=== PATIENT | female | born 1940 | race Caucasian/White ===

== ENCOUNTER 2019-11-13 08:11 | Outpatient (CLI) | payer MEDICARE, SELFPAY ==
--- NOTE | ~2019-11-13 | CT_ITS ---
EXAMINATION: CT abdomen pelvis wo/w con DATE: 11/13/2019 09:02 INDICATION: Urinary bladder cancer restaging TECHNIQUE: Computed tomography (CT) of the abdomen and pelvis was performed without and subsequently with 130 cc Omnipaque 350 intravenous contrast. Automated exposure control and iterative reconstructi on technique were employed. Exam dose: 1804.85 mGy-cm total exam DLP. COMPARISON: 09/10/2017 CT abdomen pelvis FINDINGS: There is mild discoid atelectasis or scarring in the lower lung zones. Normal heart size. No pericardial or pleural effusion. Status post cholecystectomy. Occasional small cysts of each kidney is suggested. There is a pinpoint nonobstructing calculus the right kidney. No left renal calculus. No ureteral christiano culus or hydronephrosis of either kidney. There is a small amount of free air within the urinary bladder. Mild diffuse urinary bladder wall thi ckening. No intraluminal bladder mass lesion is evident. Retroverted uterus. The adnexal areas are unremarkable. Normal appendix. There are numerous diverticula of the left colon, especially the sigmoid and distal descending colon; no CT evidence of diverticulitis. No bowel obstruction or intraperitoneal free air. There is prominent calcification of the abdominal aorta and iliac arteries. No abdominal aortic aneur ysm. No intraperitoneal or retroperitoneal or pelvic mass lesion or adenopathy or ascites. Severe degenerative disc disease throughout the lumbar and lumbosacral spine and prominent degenerati ve changes in the included lower thoracic spine. There is grade 1 anterolisthesis at L4-5 associated with prominent degenerative change at the lumbar and lumbosacral apophyseal joints. Right posterior generator device with electrodes extending into the thoracic spinal canal. IMPRESSION: No urinary bladder malignancy recurrence or metastatic disease is apparent Small amount of air in the urinary bladder, which may be due to recent instrumentation if applicable, otherwise consider urinary bladder infection. There is mild diffuse thickening of the urinary bladde r wall., Clinical correlation is recommended for possible cystitis. Pinpoint nonobstructing right renal calculus Occasional small renal cysts Diverticulosis of the left colon Reviewed, dictated and finalized at Location A. Reviewed, dictated and finalized at location A. IMPRESSION: No urinary bladder malignancy recurrence or metastatic disease is apparent Small amount of air in the urinary bladder, which may be due to recent instrume ntation if applicable, otherwise consider urinary bladder infection. There is m ild diffuse thickening of the urinary bladder wall., Clinical correlation is re commended for possible cystitis. Pinpoint nonobstructing right renal calculus Occasional small renal cysts Diverticulosis of the left colon
[2019-11-13 08:44] LABS: Estimated Glomerular Filt Rate 48
== END 2019-11-13 08:12 | disposition home or self-care (01) ==
PROVIDERS: PCP Family Medicine; Visit Provider Urology
DX: C67.4 Malignant neoplasm of posterior wall of bladder (principal); N32.9 Bladder disorder, unspecified; N28.1 Cyst of kidney, acquired; K57.90 Diverticulosis of intestine, part unspecified, without perforation or abscess without bleeding
CPT/HCPCS: 36415; 74178; Q9967

== ENCOUNTER 2020-08-19 09:14 | Emergency (ER) | payer MEDICARE, SELFPAY ==
--- NOTE | ~2020-08-19 | CT_ITS ---
EXAMINATION: CT abdomen pelvis w con DATE: 08/19/2020 10:37 INDICATION: Epigastric pain. Covid Positive. TECHNIQUE: Computed tomography (CT) of the abdomen and pelvis was performed with 100 cc Omnipaque 350 intravenous contrast. The dose-length product was 725.14 mGy-cm. Automated exposure control and iter ative reconstruction technique were employed. COMPARISON: CT dated 11/13/2019 FINDINGS: Patchy groundglass opacities of the right middle and left lower lobe, suspicious for pneumo anna. Heart size normal. There is atherosclerosis. There is right adrenal nodule measuring 3.3 x 2.1 cm. There is a left adrenal mass measuring 2.2 x 1. 6 cm. Status post cholecystectomy. The spleen, pancreas, and kidneys are unremarkable. There is atherosclerosis colonic diverticulosis without evidence for diverticulitis. Nonobstructive b owel gas pattern. Severe lumbar spondylosis. No lymphadenopathy IMPRESSION: 1. Patchy groundglass opacities right middle and left lower lobe, suspicious for pneumonia. 2: Bilateral adrenal masses. Differential diagnosis includes atypical adenomatous, metastatic diseas e and lymphoma. Consider correlation with MRI. Reviewed, dictated and finalized at location A. [employer]GR[employer] IMPRESSION: 1. Patchy groundglass opacities right middle and left lower lobe, suspicious fo r pneumonia. 2: Bilateral adrenal masses. Differential diagnosis includes atypical adenomat ous, metastatic disease and lymphoma. Consider correlation with MRI.
--- NOTE | ~2020-08-19 | XR_ITS ---
EXAMINATION: XR chest 1V portable DATE: 08/19/2020 11:04 INDICATION: Weakness. COVID-19 pneumonia. TECHNIQUE: A single frontal view of the chest was obtained. COMPARISON: Chest 2 views 09/07/2017, CT abdomen and pelvis 08/19/2020 FINDINGS: There are patchy airspace opacities in all right lung zones and in left mid and lower lung zones. No pleural effusion or pneumothorax. The heart size is normal. Epidural electrodes overlie tho racic spine. IMPRESSION: 1. Multifocal lung disease, consistent with COVID-19 pneumonia. Reviewed, dictated and finalized at location A. N [employer]OURCES TEMP
[2020-08-19 09:21] VITALS: BP 141/83; PULSE 97; RESP 20; TEMP 36.7; O2SAT 96
--- NOTE | 2020-08-19 09:27 | ECG_ITS ---
Measurements Intervals [place] Rate: 93 P: 77 MI: 144 QRS: -22 QRSD: 98 T: 14 QT: 338 QTc: 422 Interpretive Statements SINUS RHYTHM VENTRICULAR PREMATURE COMPLEX DELAYED PRECORDIAL R/S TRANSITION BORDERLINE T WAVE ABNORMALITY- INFERIOR LEADS BASELINE ARTIFACT- I, II, III, AVR, AVL, AVF BORDERLINE ECG Electronically Signed On 08-19-2020 11:20:38 WEAVING SUPERVISOR by Daniel Lazo D.O.
[2020-08-19 09:28] VITALS: PULSE 92
--- NOTE | 2020-08-19 09:43 | ED.WEAKNESS ---
HPI - Weakness General Chief complaint: Weakness Stated complaint: i feel horrible , covid 19+ Time Seen by Provider: 08/19/20 09:23 History of Present Illness HPI Narrative: 80 yo female w/ h/o htn presents to the ED for feeling bad. She reports that her symptoms started yesterday, although she also says that she had a positive COVID-19 test 3-4 days ago due to these symptoms. Her main complaint is nausea and epigastric pain. She also c/o generalized weakness. Other than that she just says she feels awful, but is not able to provide details. Related Data Allergies Allergy/AdvReac Type Severity Reaction Status Date / Time No Known Allergies Allergy Unverified 04/29/20 09:28 Review of Systems Review of Systems: All systems reviewed & are unremarkable except as noted in HPI and below Constitutional: Constitutional: Denies chills, Denies fever(s) and Reports weakness Eyes: Eyes: Reports no additional eye complaints ENT: Denies nasal congestion and Denies sore throat Cardiovascular: Cardiovascular: Denies chest pain Respiratory: Respiratory: Denies cough and Denies dyspnea Gastrointestinal: Gastrointestinal: Reports abdominal pain, Denies constipation, Denies diarrhea, Reports nausea and Denies vomiting Genitourinary: Genitourinary: Denies hematuria and Denies dysuria Musculoskeletal: Musculoskeletal: Denies back pain and Reports myalgias Neurologic: Reports confusion, Denies dizziness and Reports weakness Endocrine: Endocrine: Reports fatigue [facility] Past Medical History Medical History (Updated 08/19/20 @ 12:18 by Rayray Monroy MD) Chronic GERD Essential hypertension Essential tremor Memory deficit Primary osteoarthritis, unspecified site Family History Family History (Updated 10/28/18 @ 07:25 by DOCTOR UNKNOWN) Mother Diabetes mellitus Family history of cardiovascular disease Father Family history of aortic aneurysm Social History Social History (Updated 04/29/20 @ 09:27 by Yara Eddy) Smoking status: Former smoker Alcohol intake: never Substance use: never Gender identity (if verbalized by the patient): Female Exam Const: General: no acute distress and alert Nutritional Appearance: obese Orientation/consciousness: patient oriented x3 HENMT: Head: normal to inspection Neck: Neck: normal visual inspection and no lymphadenopathy Resp: Effort & Inspection: normal respiratory effort Auscultation: clear to auscultation bilaterally, no rales, no rhonchi and no wheezes Cardio: Jugular venous distension: no JVD Rate: regular rate Rhythm: regular rhythm Heart sounds: no murmurs GI: Inspection: non-distended GI Palp: Yes Soft to palpation, Yes Tenderness to palpation present (GI) (epigastric), Yes Guarding due to palpation present (GI) and No Rebound tenderness present Skin: General skin exam: normal color Neuro: General: patient oriented x3, moves all extremities, no focal motor deficits and CN's II-XI intact bilaterally Speech: normal speech Other: generalized fine tremor Extrem: General: no edema Psych: Appearance: well kempt Affect: Anxious affect present Course Vital Signs Vital signs: Vital Signs Temperature 36.7 C 08/19/20 09:21 Pulse Rate 97 08/19/20 09:21 Respiratory Rate 20 08/19/20 09:21 Blood Pressure 141/83 H 08/19/20 09:21 Pulse Oximetry 96 08/19/20 09:21 Temperature 36.7 C 08/19/20 09:21 Pulse Rate 90 08/19/20 11:51 Respiratory Rate 14 08/19/20 11:51 Blood Pressure 135/84 08/19/20 11:51 Pulse Oximetry 97 08/19/20 11:51 MDM - Weakness MDM Narrative Medical decision making narrative: Vital signs normal. No SOB. Labs suggest mild dehydration and UTI. She does have an infiltrate on CT and x-ray. This is not unexpected given positive COVID test. No indication for admission at this time. Medical Records Attestation: I reviewed the patient's medical records. Lab Data Attestation: I reviewed the patie
[2020-08-19] MEDS: ONDANSETRON INJ 4 MG/2 ML VIAL IV PUSH (09:56)
[2020-08-19] MEDS: SODIUM CHLORIDE 0.9% IV 500 ML 999 ML IV CONT (09:56)
[2020-08-19 10:03] LABS: Basophils Percent Auto 0.2 % (0.2-1.2); Hematocrit 47.1 % (37.0-47.0); Hemoglobin 15.8 g/dL (12.0-15.0); Immature Granulocyte Absolute 0.03 K/mm3 (0.00-0.031); Immature Granulocyte Percent A 0.5 % (0-0.5); Immature Platelet Fraction Pct 14.7 % (0.9-11.2); Lymphocytes Absolute Auto 0.69 K/mm3 (0.9-3.2); Lymphocytes Percent Auto 12.3 % (18.3-44.2); Mean Corpuscular HGB Conc 33.5 g/dl (32-36); Mean Corpuscular Hemoglobin 29.9 pg (26-34); Mean Corpuscular Volume 89.2 fl (80-100); Mean Platelet Volume 13.8 fl (7.4-10.4); Monocytes Absolute Auto 0.6 K/mm3 (0.1-0.6); Monocytes Percent Auto 9.8 % (2.6-8.5); Neutrophils Absolute Auto 4.3 K/mm3 (1.3-6.7); Neutrophils Percent Auto 77.2 % (45.5-73.1); Platelet Count Result 142 k/mm3 (150-375); Red Blood Count 5.28 M/mm3 (4.2-5.4); Red Cell Distribution Width 13.3 % (11.5-14.5); White Blood Count 5.6 K/mm3 (4.5-10.0)
[2020-08-19 10:17] LABS: Alanine Aminotransferase 36 U/L (4-35); Albumin Level 3.9 g/dL (3.5-5.1); Alkaline Phosphatase 96 U/L (38-126); Anion Gap 8 mmol/L (8-16); Aspartate Amino Transferase 50 U/L (14-36); Bilirubin,Total 0.5 mg/dL (0.2-1.3); Blood Urea Nitrogen 21 mg/dL (7-17); Calcium 9.1 mg/dL (8.4-10.2); Carbon Dioxide 27 mmol/L (22-30); Chloride 105 mmol/L (98-107); Estimated CRCL calculation 39 ml/min; Estimated Glomerular Filt Rate 60; Glucose 130 mg/dL (65-105); Potassium 3.6 mmol/L (3.4-5.0); Sodium 140 mmol/L (137-145)
[2020-08-19 11:51] VITALS: BP 135/84; PULSE 90; RESP 14; O2SAT 97
[2020-08-19 12:09] LABS: Add Urine Microscopic? YES; Appearance Urine Clear (Clear); Bilirubin Urine Negative (Negative); Blood Urine 1+ (Negative); Color Urine Straw (Yellow); Glucose Urine UA Negative (Negative); Ketones Urine Trace mg/dL (Negative); Leukocyte Esterase Ur Negative LEU/UL (Negative); Nitrate Urine Positive (Negative); Protein Urine 2+ mg/dL (Negative); RBC Urine 0-2 /hpf (0-2); Squamous Epithelial Cell Urine Rare /hpf (Few); Transitional Epi Cells Urine Rare /hpf (None Seen); Urobilinogen Urine Negative mg/dL (<2.0); WBC Urine 0-3 /hpf
[2020-08-19 12:10] LABS: Specific Grav Ur 1.042 (1.001-1.035)
[2020-08-19] MEDS: NITROFURANTOIN MONOHYD MACROCR 100 MG CAP PO (12:40)
== END 2020-08-19 12:41 | disposition home or self-care (01) ==
PROVIDERS: Emergency Provider Emergency Medicine; PCP Family Medicine
DX: U07.1 COVID-19 (principal); N30.00 Acute cystitis without hematuria; K21.9 Gastro-esophageal reflux disease without esophagitis; I10 Essential (primary) hypertension; M19.90 Unspecified osteoarthritis, unspecified site; Z87.891 Personal history of nicotine dependence; R91.8 Other nonspecific abnormal finding of lung field; I49.3 Ventricular premature depolarization; R94.31 Abnormal electrocardiogram [ECG] [EKG]
CPT/HCPCS: 36415; 71045; 74177; 80053; 81001; 85025; 85055; 93005; 96361; 96374; 99284; A9270; J2405; J7040; Q9967

== ENCOUNTER 2021-12-27 14:53 | Outpatient (CLI) | payer MEDICARE, SELFPAY ==
--- NOTE | ~2021-12-27 | DEXA_ITS ---
Bone Density Report Name: SANTANA GALAN Age: 81 Sex: Female Ethnicity: White Date of : 1940 Indication: osteopenia; monitoring treatment; height loss; postmenopausal Referring Provider: CHRISTINE STEWART Study: Bone densitometry was performed. Exam Date: December 27, 2021 Accession number: [id number] Bone Density: Region BMD T-score Z-score Classification AP Spine(L1, L2) 0.996 0.2 2.8 Normal Femoral Neck (Left) 0.609 -2.2 0.3 Osteopenia Total Hip (Left) 0.712 -1.9 0.4 Osteopenia Femoral Neck (Right) 0.606 -2.2 0.3 Osteopenia Total Hip (Right) 0.655 -2.4 -0.1 Osteopenia Total Hip Mean 0.684 -2.2 0.2 Osteopenia World Health Organization criteria for BMD impression classify patients as: Normal (T-score at or above -1.0), Osteopenia (T-score between -1.0 and -2.5), or Osteoporosis (T-score at or below -2.5). 10-year Fracture Risk: FRAX not reported because: Treated for osteoporosis Previous Exams: Region Exam Age BMD T-score BMD Change BMD Change Date g/cm2 vs Baseline vs Previous AP Spine (L1-L2) 12/27/2021 81 0.996 0.2 -0.005 (-0.5%) -0.005 (-0.5%) 11/04/2018 78 1.001 0.2 Total Hip(Left) 12/27/2021 81 0.712 -1.9 -0.101 (-12.4% -0.101 (-12.4% 11/04/2018 78 0.812 -1.1 Total Hip(Right) 12/27/2021 81 0.655 -2.4 -0.092 (-12.3% -0.092 (-12.3% 11/04/2018 78 0.747 -1.6 *Denotes significance at 95% confidence level, LSC for AP Spine = 0.022 g/cm2, LSC for Total Hip = 0.027 g/cm2 Clinical Information Provided by Patient: Is being treated for osteoporosis Has used the following medications: Vitamin D, Calcium Patient maximum height was 62 Menopause Age: 55 No regular weight bearing exercise Does not regularly consume dairy products Drinks caffeinated beverages Onset of menses at age 10 Number of children 3 Impression: The patient has low bone mass, based on the Right Total Hip T-score. The BMD for the Total Hip(Left) decreased, changing by -12.4% since the last DXA exam. The BMD for the Total Hip(Right) decreased, changing by -12.3% since the last DXA exam. Discussion: SIGNIFICANT BONE LOSS OBSERVED. Adherence to therapy (including calcium and vitamin D intake) should be assessed. If compliance is not a factor, review management and exclusion of secondary causes of bone loss. It is important to ask patients whether they are taking their medications and to encourage continued and appropriate compliance with their ost
== END 2021-12-27 14:54 | disposition home or self-care (01) ==
PROVIDERS: PCP Family Medicine; Visit Provider Physician Assistant
DX: M85.852 Other specified disorders of bone density and structure, left thigh (principal); M85.851 Other specified disorders of bone density and structure, right thigh
CPT/HCPCS: 77080

== ENCOUNTER 2023-11-29 15:23 | Outpatient (CLI) | payer MEDICARE, SELFPAY ==
--- NOTE | ~2023-11-29 | CT_ITS ---
EXAMINATION: CT brain wo con DATE: 11/29/2023 15:46 INDICATION: Amnesia. TECHNIQUE: Computed tomography (CT) of the head was performed without intravenous contrast. The dose- length product was 605.33 mGy-cm. Automated exposure control and iterative reconstruction technique w ere employed. COMPARISON: None FINDINGS: Generalized atrophy. There are scattered moderate periventricular and subcortical white mat ter changes, most likely related to small vessel ischemic disease (microangiopathy). No ventriculomeg rosa isela or midline shift. Basilar cisterns are patent. Paranasal sinuses and mastoids are pneumatized. No depressed skull fractures. IMPRESSION: 1. No acute intracranial abnormality. 2: Chronic age-related findings. Reviewed, dictated and finalized at location B.
== END 2023-11-29 15:24 | disposition home or self-care (01) ==
LOC: ANHIMG 15:25
PROVIDERS: PCP Family Medicine; Visit Provider Physician Assistant
DX: R41.3 Other amnesia (principal)
CPT/HCPCS: 70450

== ENCOUNTER 2023-12-04 11:10 | Outpatient (CLI) | payer MEDICARE, SELFPAY ==
--- NOTE | ~2023-12-04 | XR_ITS ---
XR pelvis min 3V DATE: 12/04/2023 11:42 INDICATION: Pain TECHNIQUE: AP and bilateral oblique views of the pelvis COMPARISON: None FINDINGS: There is rotatory dextro scoliosis and multilevel severe degenerative disc disease of the l umbar spine. There is a battery pack overlying the right mid to lower abdomen, with 2 electrodes extending cephala d. There is a prominent amount of fecal material within the colon. No bowel obstruction. There is abdominal aortic and iliac and femoral arterial calcification. Osteopenia. Normal alignment at the pubic symphysis and sacroiliac joints. No pelvic fracture or bone destruction is detected. Mild to moderate bilateral hip osteoarthritis. No fracture, dislocation, avascular necrosis or bone d estruction of either hip is evident. IMPRESSION: Rotatory dextroscoliosis and multilevel severe degenerative disc disease of the lumbar sp ine Osteopenia Mild to moderate bilateral hip osteoarthritis Reviewed, dictated and finalized at location B. IMPRESSION: Rotatory dextroscoliosis and multilevel severe degenerative disc di sease of the lumbar spine Osteopenia Mild to moderate bilateral hip osteoarthritis
== END 2023-12-04 11:11 | disposition home or self-care (01) ==
LOC: ANHIMG 11:11
PROVIDERS: PCP Family Medicine; Visit Provider Physical Medicine & Rehabilitation Pain Medicine
DX: M46.1 Sacroiliitis, not elsewhere classified (principal); M16.0 Bilateral primary osteoarthritis of hip; M85.88 Other specified disorders of bone density and structure, other site; M51.36 Other intervertebral disc degeneration, lumbar region
CPT/HCPCS: 72190

== ENCOUNTER 2024-10-15 12:14 | Emergency (ER) | payer MEDICARE, SELFPAY ==
--- NOTE | ~2024-10-15 | CT_ITS ---
CT head without contrast Indication: Status post fall COMPARISON: 11/29/2023 Technique: Serial scans were obtained through the brain without the administration of contrast. Dose reduction technique was used on this scan by utilizing automated exposure control and iterative recon struction technique. The dose-length product (DLP) was 605.33 mGy-cm. Findings: There is no evidence of intracranial hemorrhage, mass lesion, or acute infarct. The ventri cles and subarachnoid spaces are dilated, consistent with moderate atrophy. Low attenuation regions are seen within the periventricular white matter bilaterally, likely representing changes from chroni c microvascular ischemic disease. There is no evidence of edema, mass effect or midline shift. The visualized paranasal sinuses and mastoid air cells are clear. Impression: No intracranial hemorrhage, mass, or acute infarct. Atrophy and chronic white matter changes, as above. Reviewed, dictated and finalized at [facility]. NE MARKETER Impression: No intracranial hemorrhage, mass, or acute infarct. Atrophy and chronic white matter changes, as above.
--- NOTE | ~2024-10-15 | CT_ITS ---
Noncontrast CT scan of the cervical spine Technique: Multiple contiguous axial [address] images of the cervical spine were obtained and rec onstructed in 2D sagittal and coronal planes on the acquisition scanner. Dose reduction technique was used on this scan by utilizing automated exposure control, adjustment of the mA and/or kV according to patient size. The dose-length product (DLP) was 182.61 mGy-cm. Clinical History: Pain Findings: No fracture identified. There is straightening of the normal cervical lordosis. There is m inimal grade 1 anterolisthesis of C3 over C4. There is severe degenerative disc narrowing at C4-C5, C 5-C6, and C6-C7. There is extensive, advanced facet arthropathies of the cervical spine, right it intern al worse than left. There is right neural foraminal narrowing at C3-C4. There is bilateral neural for aminal narrowing at C4-C5. There is right neural foraminal narrowing in particular at C5-C6. There is bilateral neural foraminal narrowing at C6-C7. No prevertebral soft tissue swelling. Impression: No acute fracture. Minimal grade 1 anterolisthesis of C3 over C4. Degenerative spondylitic changes, as above. Reviewed, dictated and finalized at location M. NHOUSE TRANSPLANTER Impression: No acute fracture. Minimal grade 1 anterolisthesis of C3 over C4. Degenerative spondylitic changes, as above.
--- NOTE | ~2024-10-15 | XR_ITS ---
EXAMINATION: XR knee LT 3V DATE: 10/15/2024 13:06 INDICATION: Left knee pain. Fall. TECHNIQUE: 3 views of left knee were obtained. 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 No fracture. No periprosthetic lucency to suggest loosening or infection. There is a small knee hari int effusion. IMPRESSION: 1. Total left knee arthroplasty in near-anatomic alignment. 2. Small left knee joint effusion. Reviewed, dictated and finalized at location A. OPERATIONS OFFICER
--- NOTE | ~2024-10-15 | XR_ITS ---
EXAMINATION: XR pelvis 1-2V DATE: 10/15/2024 13:06 INDICATION: Fall. TECHNIQUE: An anteroposterior view of the pelvis was obtained. COMPARISON: Pelvis radiograph 12/04/2023 FINDINGS: There is lumbar dextroscoliosis and severe spondylosis. There is screw fixation of left sac roiliac joint. No acute fracture. There is moderate osteoarthritis of the hips. An electronic device overlies right abdomen. IMPRESSION: 1. Moderate osteoarthritis of the hips. Reviewed, dictated and finalized at location A. WORKER
--- NOTE | ~2024-10-15 | XR_ITS ---
EXAMINATION: XR chest 1V portable DATE: 10/15/2024 13:06 INDICATION: Fall. TECHNIQUE: A single frontal view of the chest was obtained. COMPARISON: Chest single view 08/19/2020 FINDINGS: There is no pneumonia, pleural effusion, or pneumothorax. The heart size is normal. Epidura l electrodes are noted. IMPRESSION: 1. No acute cardiopulmonary disease. Reviewed, dictated and finalized at location A. ENSATION SUPERVISOR
[2024-10-15 12:15] VITALS: BP 156/93; PULSE 76; RESP 18; TEMP 36.5; O2SAT 97
--- OUTSIDE RECORDS SUMMARY | 2024-10-15 12:26 | XMS_ITS | Clinical Summary ---
Author Organization [facility] Address [address] [place] [address] Care Team Providers Care Diesel Engine Pipe Fitter Name Role Phone Unavailable Primary Care Provider Unavailabl e Source Comments [facility],non-owned Affiliates and Associated Physician Practices is amultiple site organization consisting of ambulatory clinics and hospital sitesin [place], [place], [place] and [place]. This disclosure is being madepursuant to the Care Everywhere program and may not contain all information available regarding this patient. Last updated 18.[facility] [employer] Social History Tobacco Use Types Packs/Day Years Used Date Smoking Tobacco: Never Assessed Sex and Gender Information Value Date Recorded Sex Assigned at Not on file Gender Identity Not on file Sexual Orientation Not on file Last Filed Vital Signs Vital Sign Reading Time Taken Comments Blood Pressure 120/79 09/11/2017 8:55 AM SENIOR PRODUCT MARKETING MANAGER Pulse 77 09/11/2017 8:55 AM SENIOR PRODUCT MARKETING MANAGER Temperature - - Respiratory Rate - - Oxygen Saturation 97% 09/11/2017 8:55 AM SENIOR PRODUCT MARKETING MANAGER Inhaled Oxygen Concentration - - Weight 86.6 kg (191 lb) 09/11/2017 7:09 AM SENIOR PRODUCT MARKETING MANAGER Height 152.4 cm (5') 09/11/2017 7:09 AM SENIOR PRODUCT MARKETING MANAGER Body Mass Index 37.3 09/11/2017 7:09 AM SENIOR PRODUCT MARKETING MANAGER Plan of Treatment Health Maintenance Due Date Last Done Comments BONE DENSITY TESTING 1940 DTAP/TDAP/TD VACCINES (1 - Tdap) 1957 PNEUMOCOCCAL VACCINE 50+ (1 of 1 - PCV) 1988 ZOSTER VACCINE (1 of 2) 1988 Respiratory Syncytial Virus (RSV) Vaccine Pt: or over 60 yrs (1 - 1-dose 75+ series) 2013 COVID-19 VACCINE ( - 2023-2 5 season) 2024 INFLUENZA VACCINE (#1) 2024 DEPRESSION SCREENING 09/03/2024 HEPATITIS B VACCINE Aged Out No longe r eligible based on patient's age to complete this topic HIB VACCINE Aged Out No longer eligi ble based on patient's age to complete this topic HPV VACCINE Aged Out No longer eligi ble based on patient's age to complete this topic MENINGOCOCCAL (Group B) VACCINE Aged Out No longer eligible based on patient's age to complete this topic MENINGOCOCCAL VACCINE Aged Out No dominique enid eligible based on patient's age to complete this topic
--- OUTSIDE RECORDS SUMMARY | 2024-10-15 12:26 | XMS_ITS | Referral Summary ---
Author Organization [facility] Address [address] [place] [address] Care Team Providers Care Top Stop Attacher Name Role Phone Unavailable Primary Care Provider Unavailabl e Source Comments [facility],non-owned Affiliates and Associated Physician Practices is amultiple site organization consisting of ambulatory clinics and hospital sitesin [place], [place], [place] and [place]. This disclosure is being madepursuant to the Care Everywhere program and may not contain all information available regarding this patient. Last updated 18.[facility] [employer] Social History Tobacco Use Types Packs/Day Years Used Date Smoking Tobacco: Never Assessed Sex and Gender Information Value Date Recorded Sex Assigned at Not on file Gender Identity Not on file Sexual Orientation Not on file Last Filed Vital Signs Vital Sign Reading Time Taken Comments Blood Pressure 120/79 09/11/2017 8:55 AM SHEET ROCK NAILER Pulse 77 09/11/2017 8:55 AM SHEET ROCK NAILER Temperature - - Respiratory Rate - - Oxygen Saturation 97% 09/11/2017 8:55 AM SHEET ROCK NAILER Inhaled Oxygen Concentration - - Weight 86.6 kg (191 lb) 09/11/2017 7:09 AM SHEET ROCK NAILER Height 152.4 cm (5') 09/11/2017 7:09 AM SHEET ROCK NAILER Body Mass Index 37.3 09/11/2017 7:09 AM SHEET ROCK NAILER Plan of Treatment Not on file
--- OUTSIDE RECORDS SUMMARY | 2024-10-15 12:26 | XMS_ITS | Referral Summary ---
Author Organization [facility] Address [address] [place] [address] Care Team Providers Care Pelt Grader Name Role Phone Dereck Byrnes MD Primary Care Provider Allergies No known active allergies Medications losartan (COZAAR) 100 mg tablet Take 100 mg by mouth daily 12/08/2019 Active pregabalin (LYRICA) 200 mg capsule Take 200 mg by mouth 2 (two) times a day 01/29/2020 Active lansoprazole (PREVACID) 30 mg capsule Take by mouth daily 12/17/2019 Active hydroCHLOROthiaz sonam (MICROZIDE) 12.5 mg capsule Take 12.5 mg by mouth daily 12/18/2019 Active cholecalciferol (cholecalciferol ) 400 unit capsule Take by mouth daily Active celecoxib (CeleBREX) 200 mg capsule Take by mouth daily 02/13/2020 Active aspirin 81 mg enteric coated tablet Take 81 mg by mouth daily Active Active Problems Problem Noted Date Diagnosed Date Finger injury, initial encounter 03/01/2020 Degeneration of intervertebral disc of lumbar re gion 06/23/2014 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 06/23/2014 Lumbar radiculopathy 06/23/2014 Scoliosis 06/04/2014 Social History Tobacco Use Types Packs/Day Years Used Date Smoking Tobacco: Former Cigarettes Q uit: 2006 Alcohol Use Standard Drinks/Week Comments Yes 0 (1 standard drink = 0.6 oz pur e alcohol) social Personal Safety Answer Date Recorded Getting School Help Needed Not on file 11/16 Comments Unknown Sex and Gender Information Value Date Recorded Sex Assigned at Not on file Legal Sex Female 12:26 AM NITROGLYCERIN SEPARATOR OPERATOR Gender Identity Female 02/27/2020 3:04 PM CDT Sexual Orientation Straight 02/27/2020 3: 04 PM CDT Last Filed Vital Signs Vital Sign Reading Time Taken Comments Blood Pressure 183/95 03/11/2020 6:51 AM CDT Pulse 75 03/11/2020 6:51 AM CDT Temperature 35.9 C (96.6 F) 03/24/2020 9:22 AM CDT Respiratory Rate - - Oxygen Saturation 95% 03/11/2020 6:51 AM CDT Inhaled Oxygen Concentration - - Weight 86.7 kg (191 lb 3.2 oz) 03/11/2020 6:51 A M CDT Height 152.4 cm (5') 03/11/2020 6:51 AM CDT Body Mass Index 37.34 03/11/2020 6:51 AM CDT Plan of Treatment Not on file Insurance MEDICARE [facility] Care Teams Pelt Grader Relationship Specialty Start Date End Date Dereck Byrnes MD [address] [facility] [address] [place] [address] PCP - General 01/31/19
--- OUTSIDE RECORDS SUMMARY | 2024-10-15 12:26 | XMS_ITS | Patient Health Summary ---
Author Organization [facility] Address [address] [place] [address] Care Team Providers Care Crystalizer Operator Name Role Phone Unavailable Primary Care Provider Unavailabl e Note from [facility],non-owned Affiliates and Associated Physician Practices is amultiple site organization consisting of ambulatory clinics and hospital sitesin [place], [place], [place] and [place]. This disclosure is being madepursuant to the Care Everywhere program and may not contain all information available regarding this patient. Last updated 18.[facility] [employer] Social History Tobacco Use Types Packs/Day Years Used Date Smoking Tobacco: Never Assessed Sex and Gender Information Value Date Recorded Sex Assigned at Not on file Gender Identity Not on file Sexual Orientation Not on file Last Filed Vital Signs Vital Sign Reading Time Taken Comments Blood Pressure 120/79 09/11/2017 8:55 AM TELLER SUPERVISOR Pulse 77 09/11/2017 8:55 AM TELLER SUPERVISOR Temperature - - Respiratory Rate - - Oxygen Saturation 97% 09/11/2017 8:55 AM TELLER SUPERVISOR Inhaled Oxygen Concentration - - Weight 86.6 kg (191 lb) 09/11/2017 7:09 AM TELLER SUPERVISOR Height 152.4 cm (5') 09/11/2017 7:09 AM TELLER SUPERVISOR Body Mass Index 37.3 09/11/2017 7:09 AM TELLER SUPERVISOR Procedures * DERMATOPATHOLOGY(Performed 06/13/2017) * DERMATOPATHOLOGY(Performed 09/26/2016) * GROSS + MICRO EXAM(Performed 05/18/2008) Results * PATHOLOGY TISSUE FOR DERMATOLOGY (06/13/2017 12:00 AM CDT) Only the most recent of2 resultswithin the time period is included. 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 Check margins. GROSS DESCRIPTION: Received is one formalin filled container labeled with the patients name and designated left lat forehead. The specimen consists of a shave biopsy measuring [id number]. Jar 0. MICROSCOPIC DESCRIPTION: The epidermis shows full thickness disorderly maturation of keratinocytes, mitoses at different levels, and dyskeratotic cells. Adnexal extension of the lesion is seen. There is overlying parakeratosis. This lesion is present at the margin of the specimen. Electronically signed out by Dee Dee Mims M.D., PhD. 06/15/2017 2:00:28PM [facility] Comment: Performed at: Dermatopathology Laboratory [facility] Department of Dermatology [address] [place] [address] [place] [address] Phone number: [phone] FAX: [phone] 06/13/2017 06/14/2017 Chetan Michel MD LAB - PATHOLOGY/CYTO LOGY ORDERABLES [facility] [address] [place] [address]. [facility] Floor Lab [address] [phone] * GROSS + MICRO EXAM (05/18/2008 10:25 AM CDT) Result CASE NUMBER [id number] Comment: ORDERING PHYSICIAN JOY FINLEY SPECIMEN TYPE Rectal Biopsy-rectal area Date 05/18/2008 Physician Guillermo Finley Gross Description The specimen is received in a formalin-filled container labeled with the patient's name and rectal biopsy . It consists of multiple 1 mm. fragments of piña tissue, all submitted in a single cassette. LW/bk Microscopic Exam The rectal biopsy reveals multiple fragments of hyperplastic polyps. MM/na Diagnosis I. Rectum, polyps, biopsy -- Hyperplastic polyps MM/na Pediatric Physical Therapist na Pathologist Guillermo Paz M.D. [place]. 05/19/2008 1255 <1> CPT code 31246 MISCELLANEOUS SAMPLES / Unknown 05/18/2008 10:25 AM CDT 05/18/2008 2:09 PM CDT Historical Provider LAB - PATHOLOGY/C YTOLOGY ORDERABLES
--- OUTSIDE RECORDS SUMMARY | 2024-10-15 12:26 | XMS_ITS | Clinical Summary ---
Author Organization [facility] Address [address] [place] [address] Care Team Providers Care Spare Parts Clerk Name Role Phone Dereck Byrnes MD Primary [...] nosis 06/23/2014 Lumbar radiculopathy 06/23/2014 Scoliosis 06/04/2014 Surgical History Surgery Date Site/Laterality Comments JOINT REPLACEMENT Bilateral knees CHOLECYSTECTOMY EYE SURGERY SKIN CANCER EXCISION ear THUMB SURGERY 03/11/2020 Left left UCL repair Medical History Medical History Date Comments Cancer (CMS/HCC) (HCC) bladder Hypertension Family History Medical History Relation Name Comments Arthritis Father Diabetes Mother Heart disease Mother Heart disease Other 1 Family history of cardiac disorder - (Added by TW Conv) Arthritis Other 2 Family history of arthritis - (Added by TW Conv) Hypertension Other 3 Family history of hypertension - (Added by TW Conv) Diabetes Other 4 Family history of diabetes mellitus - (Added by TW Conv) Thyroid disease Other 5 Family histo ry of thyroid disease - (Added by TW Conv) Relation Name Status Comments Father Mother Other 1 Other 2 Other 3 Other 4 Other 5 Social History Tobacco Use Types Packs/Day Years [...] on file Legal Sex Female 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
--- NOTE | 2024-10-15 12:27 | ED_ITS ---
HPI - Fall General Chief Complaint: Fall Stated Complaint: FALL Time Seen by Provider: 10/15/24 12:26 Source: patient and family Mode of arrival: ambulatory Limitations: no limitations History of Present Illness HPI Narrative: 84-year-old female with a history of ex smoking,cognitive impairment, hypertension, osteoarthritis, tremor presents to the ED for -- accidental fall this morning at 9:45 a.m.. Legs were stuck and she fell on a carpeted floor and sustained a head injury. No loss of consciousness. No focal neuro deficits. -- superficial laceration over right lateral supraorbital ridge -- bruising of left knee with pain -- nausea without any vomiting. -- cough which is nonproductive MD complaint: fall Onset (ago): hour(s) ( 3 hours ago) Fall from: standing Fall witnessed: no Place fall occurred: home Loss of consciousness: none Prolonged down time: no Symptoms prior to fall: none Context: tripped/slipped Location of injury: head Associated symptoms (after fall): denies Related Data Allergies Allergy/AdvReac Type Severity Reaction Status Date / Time No Known Allergies Allergy Verified 10/15/24 12:20 Review of Systems 2 Review of Systems: vitals are stable. Patient is ambulatory. Constitutional: Constitutional: Reports as per HPI and Reports no additional constitutional complaints Eyes: Eyes: Reports as per HPI and Reports no additional eye complaints ENT: Reports system reviewed and no additional complaints, except as documented and Reports as per HPI Cardiovascular: Cardiovascular: Reports as per HPI and Reports no additional cardiovascular complaints Respiratory: Respiratory: Reports as per HPI and Reports no additional respiratory complaints Gastrointestinal: Gastrointestinal: Reports as per HPI and Reports no additional gastrointestinal complaints Genitourinary: Genitourinary: Reports no additional female genitourinary complaints and Reports as per HPI Musculoskeletal: Musculoskeletal: Reports no additional musculoskeletal complaints and Reports as per HPI Comments: left knee pain. Integumentary/Breasts: Skin/Breast: Reports system reviewed and no additional complaints, except as docu and Reports as per HPI Comments: right lateral supraorbital superficial laceration measuring 1 cm left knee erythema Neurologic: Reports system reviewed and no additional complaints, except as documented and Reports as per HPI Comments: No focal neuro deficits Psychiatric: Psychiatric: Reports no additional psychiatric complaints and Reports as per HPI Endocrine: Endocrine: Reports no additional endocrine complaints and Reports as per HPI Hematologic/Lymphatic: Hematologic/Lymphatic: Reports no additional hematologic/lymphatic complaints and Reports as per HPI Allergic/Immunologic: Allergic/Immunologic: Reports no additional allergic/immunologic complaints and Reports as per HPI [facility] Past Medical History Medical History History of basal cell cancer Mild cognitive impairment Memory deficit Chronic GERD Essential hypertension Essential tremor Primary osteoarthritis, unspecified site Surgical History Surgical History History of sacroiliac joint dysfunction s/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 Family History Family History Mother Diabetes mellitus Family history of cardiovascular disease Father Family history of aortic aneurysm Social History Social History Smoking packs per day: 1 Smoking cigarettes per day: 20.0 Years smoked: 50 Smoking pack-years: 50.00 Smoking status: Former smoker Tobacco type: cigarettes Second hand tobacco smoke exposure: No Smoking end date: 09/03/05 Alcohol intake: never Substance use: never Substance use type: does not use Living arrangements: with family Occupation/Education: retired Gender identity (if verbalized by the patient): Female Sexual Orientation (if Verbalized by the Patient): Straight or Heterosexual Exam 2 Narrative: blood pressure is 156/93. Pulse of 76. Afebrile oxygen saturation of 97% on room air. Const: General: healthy appearing and no acute distress O rientation/consciousness: patient oriented x3 ( Patient is awake. Patient is oriented.) HENMT: Head: normal to inspection Head images: 1. 1 cm superficial laceration over the right supraorbital region. Ears: external ears normal Face/Nose/Sinus: Normal external nose present F higinio and sinus: normal facial exam Mouth: Yes Normal oral and palatal mucosa present Throat: posterior oropharynx normal Eyes: Conjunctivae: conjunctivae normal Pupils: Equal, round and reactive pupils present EOM: EOMs intact bilaterally Direct Ophthalmoscopy: no photophobia Neck: Neck: normal visual inspection, no lymphadenopathy and no meningeal signs Other: No spinal tenderness noted Chest: Chest palpation & inspection: normal inspection of the chest Other: no chest wall tenderness Resp: Effort & Inspection: normal respiratory effort Auscultation: clear to auscultation bilaterally Cardio: Rate: regular rate Rhythm: regular rhythm GI: Auscultation: normal bowel sounds Other: no tenderness/rigidity / rebound. : General: Yes no CVA tenderness Back/Spine/Pelvis: Back: no CVA tenderness Cervical Spine: collar present Other: No spinal tenderness Skin: General skin exam: normal color Wounds: no wounds Other: left knee erythema Neuro: General: patient oriented x3, moves all extremities, no meningeal signs, no focal motor deficits and CN's II-XI intact bilaterally Cranial nerves: Yes Nystagmus not present Speech: normal speech Gait exam (Neuro): Normal gait present Extrem: General: normal to inspection and no clubbing, cyanosis or edema O ther: left knee erythema. Normal range of Psych: Mental Status: mental status grossly normal Affect: normal affect Attitude: cooperative Course Course Emergency Course: Accidental fall-- CT of the head and the C-spine did not show any acute findings. Patient's chest x-ray, pelvis x-ray and left knee did not show any acute findings. cough-- Influenza a-- patient does not appear to be very symptomatic and hands will hold off Tamiflu. Vital Signs Vital signs: Vital Signs Oxygen Delivery Room Air 10/15/24 12:14 Temperature 36.5 C 10/15/24 12:15 Pulse Rate 76 10/15/24 12:15 Respiratory Rate 18 10/15/24 12:15 Blood Pressure 156/93 H 10/15/24 12:15 Pulse Oximetry 97 10/15/24 12:15 Oxygen Delivery Room Air 10/15/24 12:15 MDM - Fall MDM Narrative Medical decision making narrative: Accidental fall influenza a Differential Diagnosis Differential diagnosis: Likely compression fracture and concussion without loss of consciousness Medical Records Attestation: I reviewed the patient's medical records. Lab Data Attestation: I reviewed the patient's lab results. Labs: Lab Results 10/15/24 Range/Units 12:45 Influenza A (RT-PCR) Positive A (Negative) Influenza B (RT-PCR) Negative (Negative) RSV (RT-PCR) Negative (Negative) SARS-CoV-2 RNA (RT-PCR) Negative (Negative) Discharge Plan Discharge Clinical Impression: Influenza A Accidental fall Qualifiers: Encounter type: initial encounter Qualified Code(s): W19.XXXA - Unspecified fall, initial encounter Head injury Qualifiers: Encounter type: initial encounter Qualified Code(s): S09.90XA - Unspecified injury of head, initial encounter Patient Disposition: Home, Self-Care Condition: Stable Instructions: Antibiotic Form, Influenza (ED), Head Injury (ED) Patient Language: Vietnamese Prescriptions: No Action oxycodone-acetaminophen 5-325 mg tablet 1 tablet PO BID PRN (Reason: pain) Qty: 1 0RF donepezil 10 mg tablet 10 mg PO QHS Qty: 90 2RF propranolol 40 mg tablet 40 mg PO Q12H Qty: 180 3RF hydrochlorothiazide 25 mg tablet 25 mg PO DAILY Qty: 90 3RF lansoprazole 30 mg capsule,delayed release(DR/EC) See Rx Instructions .ROUTE .COMPLEX Qty: 90 2RF Dose Instruction: TAKE 1 CAPSULE BY MOUTH EVERY DAY Rx Instructions: TAKE 1 CAPSULE BY MOUTH EVERY DAY losartan 100 mg tablet See Rx Instructions .ROUTE .COMPLEX Qty: 90 2RF Dose Instruction: TAKE 1 TABLET BY MOUTH EVERY DAY Rx Instructions: TAKE 1 TABLET BY MOUTH EVERY DAY celecoxib [Celebrex] 200 mg capsule 200 mg PO DAILY Qty: 90 2RF memantine 10 mg tablet See Rx Instructions .ROUTE .COMPLEX Qty: 30 5RF Dose Instruction: TAKE ONE TABLET BY MOUTH EVERY EVENING Rx Instructions: TAKE ONE TABLET BY MOUTH EVERY EVENING Follow-up/Referrals: Dereck Byrnes MD [Primary Care Provider] - Time of Disposition: 14:02
--- OUTSIDE RECORDS SUMMARY | 2024-10-15 12:48 | XMS_ITS | Clinical Summary ---
Author Organization [facility] Address [address] [place] [address] Care Team Providers Care Manager Law Name Role Phone Unavailable Primary Care Provider Unavailabl e Source Comments [facility],non-owned Affiliates and Associated Physician Practices is amultiple site organization consisting of ambulatory clinics and hospital sitesin [place], [place], [place] and [place]. This disclosure is being madepursuant to the Care Everywhere program and may not contain all information available regarding this patient. Last updated 18.[facility] [email or web address] Social History Tobacco Use Types Packs/Day Years Used Date Smoking Tobacco: Never Assessed Sex and Gender Information Value Date Recorded Sex Assigned at Not on file Gender Identity Not on file Sexual Orientation Not on file Last Filed Vital Signs Vital Sign Reading Time Taken Comments Blood Pressure 120/79 09/11/2017 8:55 AM DEWATERING FILTERING SUPERVISOR Pulse 77 09/11/2017 8:55 AM DEWATERING FILTERING SUPERVISOR Temperature - - Respiratory Rate - - Oxygen Saturation 97% 09/11/2017 8:55 AM DEWATERING FILTERING SUPERVISOR Inhaled Oxygen Concentration - - Weight 86.6 kg (191 lb) 09/11/2017 7:09 AM DEWATERING FILTERING SUPERVISOR Height 152.4 cm (5') 09/11/2017 7:09 AM DEWATERING FILTERING SUPERVISOR Body Mass Index 37.3 09/11/2017 7:09 AM DEWATERING FILTERING SUPERVISOR Plan of Treatment Health Maintenance Due Date [...]
--- OUTSIDE RECORDS SUMMARY | 2024-10-15 12:48 | XMS_ITS | Clinical Summary ---
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
--- OUTSIDE RECORDS SUMMARY | 2024-10-15 12:48 | XMS_ITS | Referral Summary ---
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
--- OUTSIDE RECORDS SUMMARY | 2024-10-15 12:48 | XMS_ITS | Patient Health Summary ---
Author Organization [facility] Address [address] [place] [address] Care Team Providers Care Almond Roaster Name Role Phone Unavailable Primary Care Provider Unavailabl e Note from [facility],non-owned Affiliates and Associated Physician Practices is amultiple site organization consisting of ambulatory clinics and hospital sitesin [place], [place], [place] and [place]. This disclosure is being madepursuant to the Care Everywhere program and may not contain all information available regarding this patient. Last updated 18.[facility] [employer] Social History Tobacco Use Types Packs/Day Years Used Date Smoking Tobacco: Never Assessed Sex and Gender Information Value Date Recorded Sex Assigned at Not on file Gender Identity Not on file Sexual Orientation Not on file Last Filed Vital Signs Vital Sign Reading Time Taken Comments Blood Pressure 120/79 09/11/2017 8:55 AM STEAM AND POWER SUPERINTENDENT Pulse 77 09/11/2017 8:55 AM STEAM AND POWER SUPERINTENDENT Temperature - - Respiratory Rate - - Oxygen Saturation 97% 09/11/2017 8:55 AM STEAM AND POWER SUPERINTENDENT Inhaled Oxygen Concentration - - Weight 86.6 kg (191 lb) 09/11/2017 7:09 AM STEAM AND POWER SUPERINTENDENT Height 152.4 cm (5') 09/11/2017 7:09 AM STEAM AND POWER SUPERINTENDENT Body Mass Index 37.3 09/11/2017 7:09 AM STEAM AND POWER SUPERINTENDENT Procedures * DERMATOPATHOLOGY(Performed 06/13/2017) * DERMATOPATHOLOGY(Performed 09/26/2016) [...] specimen consists of a shave biopsy measuring [id number]. Jar 0. MICROSCOPIC DESCRIPTION: The epidermis shows full thickness disorderly maturation of keratinocytes, mitoses at different levels, and dyskeratotic cells. Adnexal extension of the lesion is seen. There is overlying parakeratosis. This lesion is present at the margin of the specimen. Electronically signed out by Dee Dee Mims M.D., PhD. 06/15/2017 2:00:28PM [facility] Comment: Performed at: Dermatopathology Laboratory [facility] Department of Dermatology [address] [place] [address] [place] [address] Phone number: [phone] FAX: [phone] 06/13/2017 06/14/2017 Chetan Michel MD LAB - PATHOLOGY/CYTO LOGY ORDERABLES [facility] [address] [place] [address]. [facility] Floor Lab [address] [phone] * GROSS + MICRO EXAM (05/18/2008 10:25 [...] Rectum, polyps, biopsy -- Hyperplastic polyps MM/na Contact Finger Assembler na Pathologist Guillermo Paz M.D. Snomed. 05/19/2008 1255 <1> CPT code 61910 MISCELLANEOUS SAMPLES / Unknown 05/18/2008 10:25 AM CDT 05/18/2008 2:09 PM CDT Historical Provider LAB - PATHOLOGY/C YTOLOGY ORDERABLES
--- OUTSIDE RECORDS SUMMARY | 2024-10-15 12:48 | XMS_ITS | Referral Summary ---
Author Organization [facility] Address [address] [place] [address] Care Team Providers Care Threshing Department Supervisor Name Role Phone Unavailable Primary Care Provider Unavailabl e Source Comments [facility],non-owned Affiliates and Associated Physician Practices is amultiple site organization consisting of ambulatory clinics and hospital sitesin [place], [place] and [place]. This disclosure is being madepursuant to the Care Everywhere program and may not contain all information available regarding this patient. Last updated 18.[facility] [employer] Social History Tobacco Use Types Packs/Day Years Used Date Smoking Tobacco: Never Assessed Sex and Gender Information Value Date Recorded Sex Assigned at Not on file Gender Identity Not on file Sexual Orientation Not on file Last Filed Vital Signs Vital Sign Reading Time Taken Comments Blood Pressure 120/79 09/11/2017 8:55 AM VACUUM DRIER OPERATOR Pulse 77 09/11/2017 8:55 AM VACUUM DRIER OPERATOR Temperature - - Respiratory Rate - - Oxygen Saturation 97% 09/11/2017 8:55 AM VACUUM DRIER OPERATOR Inhaled Oxygen Concentration - - Weight 86.6 kg (191 lb) 09/11/2017 7:09 AM VACUUM DRIER OPERATOR Height 152.4 cm (5') 09/11/2017 7:09 AM VACUUM DRIER OPERATOR Body Mass Index 37.3 09/11/2017 7:09 AM VACUUM DRIER OPERATOR Plan of Treatment Not on file
--- OUTSIDE RECORDS SUMMARY | 2024-10-15 12:48 | XMS_ITS | Clinical Summary ---
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 Gender Identity Not on file Sexual Orientation Not on file Plan of Treatment Health Maintenance Due Date Last Done Comments DTaP, Tdap and Td Vaccines ( 1 - Tdap) 1957 Zoster Vaccines (1 of 2) 1988 Annual Medicare Wellness Visit 2003 Pneumococcal Vaccine: 65+ Years (1 of 1 - PCV) 2003 RSV Immunization or 60+ Years (1 - 1-dose 75+ series) 2013 COVID-19 Vaccine (2023-2 5 season) 2024 08/08/2021, 11/25/2020, 10/27/2020 Influenza Adult (#1) 2024 06/16/2020, 05/07/2019, 08/14/2012 Meningococcal B Vaccine Aged Out No l onger eligible based on patient's age to complete this topic Meningococcal Vaccine Aged Out No dominique enid eligible based on patient's age to complete this topic RSV Immunizations Under 20 Months Aged Out No longer eligible b ased on patient's age to complete this topic Medical Devices Implanted Type Area Trial Paralegal Device Identifier Shelf Expiration Date Model / Serial / Lot Stimulator Lead-09/15/2019 Implanted:Qty: 1 on 09/15/2019 Lead Implant [employer] [id number] / [id number] / Stimulator Implant- 9 Implanted:Qty: 1 on 02/07/2019 Stimulator Implant [employer] [id number] / [id number] / Description:MR CONDITIONAL A T 1.5 T ONLY, NEED REMOTE TO TURN OFF STIMULATION, CHECK FOR FULL BODY ELIGIBILITY WITH REMOTE, NORMAL VISHAL, MAX TOTAL SCAN TIME OF 30 MINUTES IN A 90 MINUTE WINDOW Insurance MEDICARE [facility] Care Teams Postage Machine Operator Relationship Specialty Start Date End Date Dereck Byrnes MD [address] [place] [address] PCP - General FAMILY PRACTICE 04/07/24
--- OUTSIDE RECORDS SUMMARY | 2024-10-15 12:48 | XMS_ITS | Clinical Summary ---
Author Organization [facility] Address [address] [place] [address] Phone Care Team Providers Care Repossessor Name Role Phone Dereck Byrnes MD Primary Care Provider Allergies No known active allergies Medications celecoxib (CeleBREX) 200 mg capsule Take 200 mg by mouth daily. Active lansoprazole (PREVACID) 30 mg Capsule, Delayed Release(E.C.) Take 30 mg by mouth daily. Active hydroCHLOROthiaz sonam (HYDRODIURIL) 12.5 mg tablet Take 12.5 mg by mouth daily. Active aspirin (ECOTRIN EC) 81 mg Tablet, Delayed Release (E.C.) Take 81 mg by mouth daily. Active losartan (COZAAR) 100 mg tablet Take 100 mg by mouth daily. Active calcium carbonate (CALCIUM 500 ORAL) Take 1,200 mg by mouth daily. Active cholecalciferol (DELTA-D, VITAMIN D3) 400 unit Tablet Take by mouth daily. Active pregabalin (LYRICA) 200 mg Capsule Take 200 mg by mouth daily. Active HYDROcodone-acet aminophen (NORCO) 5-325 mg tabletIndication s:Chronic bilateral low back pain, unspecified whether sciatica present Take 1-2 Tablets by mouth every 4 hours as needed for Moderate Pain. Max Daily Amount: 12 Tablets 40 Tablet 09/15/2019 4:13 PM YOUTH NUTRITIONAL MONITOR 0 Active Immunizations Immunization Administration Dates Next Due Influenza Seasonal Unspecified Formulation IM Social History Tobacco Use Types Packs/Day Years Used Date Smoking Tobacco: Former Cigarettes 1 50 1 10/1955 - 08/2006 Smokeless Tobacco: Never Alcohol Use Standard Drinks/Week Comments Not Currently 0 (1 standard drink = 0.6 oz pur e alcohol) Comments Unknown Sex and Gender Information Value Date Recorded Sex Assigned at Not on file Legal Sex Female 11:27 AM CDT Gender Identity Not on file Sexual Orientation Not on file Last Filed Vital Signs Vital Sign Reading Time Taken Comments Blood Pressure 128/78 09/15/2019 11:40 AM YOUTH NUTRITIONAL MONITOR Pulse 80 09/15/2019 11:40 AM YOUTH NUTRITIONAL MONITOR Temperature 36.3 C (97.4 F) 09/15/2019 11:40 AM YOUTH NUTRITIONAL MONITOR Respiratory Rate 14 09/15/2019 11:15 AM YOUTH NUTRITIONAL MONITOR Oxygen Saturation 92% 09/15/2019 11:40 AM YOUTH NUTRITIONAL MONITOR Inhaled Oxygen Concentration - - Weight 87.1 kg (192 lb) 09/15/2019 6:36 AM YOUTH NUTRITIONAL MONITOR Height 149.9 cm (4' 11 ) 09/15/2019 6:36 AM YOUTH NUTRITIONAL MONITOR Body Mass Index 38.78 09/15/2019 6:36 AM YOUTH NUTRITIONAL MONITOR Plan of Treatment Health Maintenance Due Date Last Done Comments DTAP/TDAP/TD VACCINES (1 - Tdap) 1957 PNEUMOCOCCAL VACCINE 65+ YEARS (1 of 1 - PCV) 05/13/19 88 ZOSTER VACCINE (1 of 2) 1988 OSTEOPOROSIS SCREENING 2003 RSV VACCINE (60+ or ) (1 - 1-dose 75+ series) 2013 INFLUENZA VACCINE (#1) 2024 05/07/2019 Medical Devices Implanted Type Area Ux Engineer Device Identifier Shelf Expiration Date Model / Serial / Lot [place] Kaliex Bryon [id number] - [id number] Implanted:Qty: 1 on 09/15/2019 by Debora Najera MD at [facility] [place] N/A: Thoracic [employer]- NEUROLOGIC TECH 04/23/2023 [id number] / / [id number] Hemostatic Surgiflo 8ml W/Thrombin 2994 - [id number] Implanted:Qty: 1 on 09/15/2019 by Debora Najera MD at [facility] Hemostatic N/A: Thoracic [employer]- [employer] [id number] 07/03/2020 [id number] / / [id number] Medtronic Specify Surescan Mri Implanted:Qty: 1 on 09/15/2019 by Debora Najera MD at [facility] Lead N/A: Thoracic [employer] 01/04/2021 [id number] / / [id number] Description:All Medtronic co mponents are processed on requisition [id number]. Neuro Stimulator [employer] - COVIDIEN [id number] / [id number] / Description:need to check if whole body eligible and must have remote. ONLY 30 minutes of scanning 1.5T CLOSED only-merrill 07/09/19 Rodrick Knees Explanted Type Area Ux Engineer Device Identifier Shelf Expiration Date Model / Serial / Lot Electrode Explanted:Qty: 1 on 09/15/2019 by Debora Najera MD at [facility] N/A: Spine Lumbar Insurance MEDICARE PART A AND B [facility] RX PRIME THERAPEUTICS Medicare Part D Advance Directives For more information, please contact: [phone] * Full Code (Latest Code Status on File) Date Activated Date Inactivated Comments 09/15/2019 11:41 AM 09/15/2019 5:01 PM * Full Code Date Activated Date Inactivated Comments 09/15/2019 7:30 AM 09/15/2019 11:41 AM Care Teams Repossessor Relationship Specialty Start Date End Date Dereck Byrnes MD [address] [facility] [address] [place] [address] PCP - General Family Practice 09/01/19
--- NOTE | 2024-10-15 13:17 | PC.NURSE ---
PT HAS RETURNED FROM CT. DAUGHTERS REMAIN AT BEDSIDE. FAMILY HAD REPORTED A COUGH TO ERP, CXR WAS COMPLETED. TO AWAIT RESULTS ON RADIOLOGY AND LAB AT THIS TIME. NAD NOTED. PT DENIES ANY NEEDS OR COMPLAINTS. WILL CONTINUE TO MONITOR.
--- NOTE | 2024-10-15 13:33 | PC.NURSE ---
PT IS SITTING UP ON STRETCHER TALKING WITH DAUGHTERS AND TEXTING ON CELL PHONE. NAD NOTED PT DENIES ANY NEEDS OR COMPLAINTS. AWAITING LAB RESULTS AT THIS TIME. UPDATED ON STATUS. WILL CONTINUE TO MONITOR. ASSISTED PT TO RR. SHE WAS AMBULATORY TO RR WITH MINOR STUBBING OF TOE ON THE FLOOR. NO FALLS OR LOSS OF BALANCE.
[2024-10-15] MEDS: TETANUS,DIPHTHERIA,AC PERTUSSIS ADULT 0.5 ML (ADACEL) IM (13:47)
[2024-10-15 13:55] LABS: Influenza A QL RT-PCR Positive (Negative); Influenza B QL RT-PCR Negative (Negative); RSV RNA, RT-PCR Negative (Negative); SARS-CoV-2 RNA PCR Negative (Negative)
[2024-10-15 14:16] VITALS: PULSE 78; RESP 18; O2SAT 98
== END 2024-10-15 14:15 | disposition home or self-care (01) ==
PROVIDERS: Emergency Provider Internal Medicine Critical Care Medicine; PCP Family Medicine
DX: J10.1 Influenza due to other identified influenza virus with other respiratory manifestations (principal); S01.81XA Laceration without foreign body of other part of head, initial encounter; S80.02XA Contusion of left knee, initial encounter; I10 Essential (primary) hypertension; Z87.891 Personal history of nicotine dependence; Z23 Encounter for immunization; W01.0XXA Fall on same level from slipping, tripping and stumbling without subsequent striking against object, initial encounter; Y92.009 Unspecified place in unspecified non-institutional (private) residence as the place of occurrence of the external cause
CPT/HCPCS: 70450; 71045; 72125; 72170; 73562; 87637; 90471; 90715; 99284

== ENCOUNTER 2024-10-20 10:49 | Outpatient (CLI) | payer MEDICARE, SELFPAY ==
[2024-10-20 11:04] LABS: Basophils Absolute Auto 0.04 K/mm3 (0.00-0.10); Basophils Percent Auto 0.4 % (0.0-1.0); Eosinophils Absolute Auto 0.05 K/mm3 (0.02-0.50); Eosinophils Percent Auto 0.5 % (1.0-6.0); Hematocrit 41.4 % (35.0-42.0); Hemoglobin 13.5 g/dL (11.7-13.8); Immature Granulocyte Absolute 0.06 K/mm3 (0.00-0.00); Immature Granulocyte Percent A 0.5 % (0.0-0.0); Lymphocytes Absolute Auto 1.61 K/mm3 (1.10-4.50); Lymphocytes Percent Auto 14.7 % (18.0-42.0); Mean Corpuscular HGB Conc 32.6 g/dL (32-36); Mean Corpuscular Hemoglobin 30.5 pg (27.0-31.0); Mean Corpuscular Volume 93.5 fL (78.0-102.0); Mean Platelet Volume 12.4 fl (9.2-11.8); Monocytes Absolute Auto 0.52 K/mm3 (0.10-0.90); Monocytes Percent Auto 4.8 % (2.0-11.0); Neutrophils Absolute Auto 8.64 K/mm3 (1.70-7.20); Neutrophils Percent Auto 79.1 % (50.0-70.0); Platelet Count Result 217 K/mm3 (150-420); Red Blood Count 4.43 M/mm3 (4.20-5.40); Red Cell Distribution Width 12.8 % (11.6-14.4); White Blood Count 10.9 K/mm3 (4.8-10.8)
[2024-10-20 11:30] LABS: Hemoglobin A1C 5.7 % (<5.7)
[2024-10-20 12:01] LABS: Alanine Aminotransferase 16 U/L (14-59); Albumin Level 3.6 g/dL (3.4-5.0); Alkaline Phosphatase 120 U/L (46-116); Anion Gap 7 mmol/L (4-12); Aspartate Amino Transferase 13 U/L (15-37); Bilirubin,Total 0.6 mg/dL (0.00-1.00); Blood Urea Nitrogen 23 mg/dL (7-18); Calcium 9.7 mg/dL (8.5-10.1); Carbon Dioxide 33 mmol/L (21-32); Chloride 100 mmol/L (98-108); Cholesterol 197 mg/dL (0-200); Estimated Glomerular Filt Rate 34; Folic Acid 7.2 ng/mL (8.6->20); Glucose 118 mg/dL (70-99); HDL Direct 64 mg/dL (40-60); LDL Cholesterol Calculated 106 mg/dL (<130); Osmolality Calculated 294 mOsm/kg (285-295); Potassium 4.2 mmol/L (3.5-5.1); Sodium 140 mmol/L (136-145); Total Protein 6.7 g/dL (6.4-8.2); Triglycerides 136 mg/dL (0-150); Vitamin B12 244 pg/mL (193-986)
[2024-10-20 12:20] LABS: Thyroid Stimulating Hormone Reflex 0.88 u/IU/mL (0.36-3.74)
--- OUTSIDE RECORDS SUMMARY | 2024-10-20 13:54 | XMS_ITS | Patient Health Summary ---
Author Organization [facility] Address [address] [place] [address] Care Team Providers Care Chief Creative Officer Name Role Phone Unavailable Primary Care Provider Unavailabl e Note from [facility],non-owned Affiliates and Associated Physician Practices is amultiple site organization consisting of ambulatory clinics and hospital sitesin [place], [place], [place] and [place]. This disclosure is being madepursuant to the Care Everywhere program and may not contain all information available regarding this patient. Last updated 18.[facility] [employer] Social History Tobacco Use Types Packs/Day Years Used Date Smoking Tobacco: Never Assessed Sex and Gender Information Value Date Recorded Sex Assigned at Not on file Gender Identity Not on file Sexual Orientation Not on file Last Filed Vital Signs Vital Sign Reading Time Taken Comments Blood Pressure 120/79 09/11/2017 8:55 AM FLESHING MACHINE OPERATOR Pulse 77 09/11/2017 8:55 AM FLESHING MACHINE OPERATOR Temperature - - Respiratory Rate - - Oxygen Saturation 97% 09/11/2017 8:55 AM FLESHING MACHINE OPERATOR Inhaled Oxygen Concentration - - Weight 86.6 kg (191 lb) 09/11/2017 7:09 AM FLESHING MACHINE OPERATOR Height 152.4 cm (5') 09/11/2017 7:09 AM FLESHING MACHINE OPERATOR Body Mass Index 37.3 09/11/2017 7:09 AM FLESHING MACHINE OPERATOR Procedures * DERMATOPATHOLOGY(Performed 06/13/2017) * DERMATOPATHOLOGY(Performed 09/26/2016) [...] specimen consists of a shave biopsy measuring [id number]. Jar 0. MICROSCOPIC DESCRIPTION: The epidermis shows full thickness disorderly maturation of keratinocytes, mitoses at different levels, and dyskeratotic cells. Adnexal extension of the lesion is seen. There is overlying parakeratosis. This lesion is present at the margin of the specimen. Electronically signed out by Dee Dee Mims M.D., PhD. 06/15/2017 2:00:28PM [facility] Comment: Performed at: Dermatopathology Laboratory [facility] Department of Dermatology [address] [place] [address] [place] [address] Phone number: [phone] FAX: [phone] 06/13/2017 06/14/2017 Chetan Michel MD LAB - PATHOLOGY/CYTO LOGY ORDERABLES [facility] [address] [place] [address]. [place] Floor Lab [address] [phone] * GROSS + MICRO EXAM (05/18/2008 10:25 [...] Rectum, polyps, biopsy -- Hyperplastic polyps MM/na Mechanical Operator na Pathologist Guillermo Paz M.D. Sn[place]. 05/19/2008 1255 <1> CPT code 27364 MISCELLANEOUS SAMPLES / Unknown 05/18/2008 10:25 AM CDT 05/18/2008 2:09 PM CDT Historical Provider LAB - PATHOLOGY/C YTOLOGY ORDERABLES
--- OUTSIDE RECORDS SUMMARY | 2024-10-20 13:55 | XMS_ITS | Clinical Summary ---
Author Organization [facility] Address [address] [place] [address] Care Team Providers Care Faculty Head Name Role Phone Dereck Byrnes MD Primary [...] on file Legal Sex Female 12:26 AM DERMATOLOGY PHYSICIAN ASSISTANT Gender Identity Female 02/27/2020 3:04 PM CDT [...] of Treatment Not on file Insurance MEDICARE REPLACED BY [facility] Care Teams Faculty Head Relationship Specialty Start Date End Date Dereck Byrnes MD [address] [facility] [address] [place], [place] [id number] PCP - General 01/31/19
--- OUTSIDE RECORDS SUMMARY | 2024-10-20 13:55 | XMS_ITS | Clinical Summary ---
Author Organization [facility] Address [address] [place] [address] Care Team Providers Care Clinical Trial Educator Name Role Phone Unavailable Primary Care Provider Unavailabl e Source Comments [facility],non-owned Affiliates and Associated Physician Practices is amultiple site organization consisting of ambulatory clinics and hospital sitesin [place], [place], [place] and [place]. This disclosure is being madepursuant to the Care Everywhere program and may not contain all information available regarding this patient. Last updated 18.[facility] [employer] Social History Tobacco Use Types Packs/Day Years Used Date Smoking Tobacco: Never Assessed Sex and Gender Information Value Date Recorded Sex Assigned at Not on file Gender Identity Not on file Sexual Orientation Not on file Last Filed Vital Signs Vital Sign Reading Time Taken Comments Blood Pressure 120/79 09/11/2017 8:55 AM REAL ESTATE LEGAL SECRETARY Pulse 77 09/11/2017 8:55 AM REAL ESTATE LEGAL SECRETARY Temperature - - Respiratory Rate - - Oxygen Saturation 97% 09/11/2017 8:55 AM REAL ESTATE LEGAL SECRETARY Inhaled Oxygen Concentration - - Weight 86.6 kg (191 lb) 09/11/2017 7:09 AM REAL ESTATE LEGAL SECRETARY Height 152.4 cm (5') 09/11/2017 7:09 AM REAL ESTATE LEGAL SECRETARY Body Mass Index 37.3 09/11/2017 7:09 AM REAL ESTATE LEGAL SECRETARY Plan of Treatment Health Maintenance Due Date [...]
--- OUTSIDE RECORDS SUMMARY | 2024-10-20 13:55 | XMS_ITS | Referral Summary ---
Author Organization [facility] Address [address] [place] [address] Care Team Providers Care Medium Cycle Salesperson Name Role Phone Dereck Byrnes MD Primary [...] on file Legal Sex Female 12:26 AM FLOOR ASSEMBLER Gender Identity Female 02/27/2020 3:04 PM CDT [...] of Treatment Not on file Insurance MEDICARE [facility] Care Teams Medium Cycle Salesperson Relationship Specialty Start Date End Date Dereck Byrnes MD [address] [facility] [address] [place] [address] PCP - General 01/31/19
--- OUTSIDE RECORDS SUMMARY | 2024-10-20 13:55 | XMS_ITS | Referral Summary ---
Author Organization [facility] Address [address] [facility] [place] [address] Care Team Providers Care Cane Feeder Name Role Phone Unavailable Primary Care Provider Unavailabl e Source Comments [facility],non-owned Affiliates and Associated Physician Practices is amultiple site organization consisting of ambulatory clinics and hospital sitesin [place], [place], [place] and [place]. This disclosure is being madepursuant to the Care Everywhere program and may not contain all information available regarding this patient. Last updated 18.[facility] [employer] Social History Tobacco Use Types Packs/Day Years Used Date Smoking Tobacco: Never Assessed Sex and Gender Information Value Date Recorded Sex Assigned at Not on file Gender Identity Not on file Sexual Orientation Not on file Last Filed Vital Signs Vital Sign Reading Time Taken Comments Blood Pressure 120/79 09/11/2017 8:55 AM USPS LETTER CARRIER Pulse 77 09/11/2017 8:55 AM USPS LETTER CARRIER Temperature - - Respiratory Rate - - Oxygen Saturation 97% 09/11/2017 8:55 AM USPS LETTER CARRIER Inhaled Oxygen Concentration - - Weight 86.6 kg (191 lb) 09/11/2017 7:09 AM USPS LETTER CARRIER Height 152.4 cm (5') 09/11/2017 7:09 AM USPS LETTER CARRIER Body Mass Index 37.3 09/11/2017 7:09 AM USPS LETTER CARRIER Plan of Treatment Not on file
--- OUTSIDE RECORDS SUMMARY | 2024-10-20 13:55 | XMS_ITS | Clinical Summary ---
Author Organization [facility] Address [address] [place] [address] Phone Care Team Providers Care V Belt Skiver Name Role Phone Dereck Byrnes MD Primary [...] 12 Tablets 40 Tablet 09/15/2019 4:13 PM SILO FILLER 0 Active Immunizations Immunization Administration Dates Next [...] Comments Blood Pressure 128/78 09/15/2019 11:40 AM SILO FILLER Pulse 80 09/15/2019 11:40 AM SILO FILLER Temperature 36.3 C (97.4 F) 09/15/2019 11:40 AM SILO FILLER Respiratory Rate 14 09/15/2019 11:15 AM SILO FILLER Oxygen Saturation 92% 09/15/2019 11:40 AM SILO FILLER Inhaled Oxygen Concentration - - Weight 87.1 kg (192 lb) 09/15/2019 6:36 AM SILO FILLER Height 149.9 cm (4' 11 ) 09/15/2019 6:36 AM SILO FILLER Body Mass Index 38.78 09/15/2019 6:36 AM SILO FILLER Plan of Treatment Health Maintenance Due Date Last Done Comments DTAP/TDAP/TD VACCINES (1 - Tdap) 1957 PNEUMOCOCCAL VACCINE 65+ YEARS (1 of 1 - PCV) 05/13/19 88 ZOSTER VACCINE (1 of 2) 1988 OSTEOPOROSIS SCREENING 2003 RSV VACCINE (60+ or ) (1 - 1-dose 75+ series) 2013 INFLUENZA VACCINE (#1) 2024 05/07/2019 Medical Devices Implanted Type Area Music Director Device Identifier Shelf Expiration Date Model / Serial / Lot [place] Kaliex Bryon [id number] - [id number] Implanted:Qty: 1 on 09/15/2019 by Debora Najera MD at [facility] [place] N/A: Thoracic [employer]- NEUROLOGIC TECH 04/23/2023 [id number] / / [id number] Hemostatic Surgiflo 8ml W/Thrombin 2994 - [id number] Implanted:Qty: 1 on 09/15/2019 by Debora Najera MD at [facility] Hemostatic N/A: Thoracic J[employer]J- [employer] [id number] 07/03/2020 [id number] / / [id number] Medtronic Specify Surescan Mri Implanted:Qty: 1 on 09/15/2019 by Debora Najera MD at [facility] Lead N/A: Thoracic [employer] 01/04/2021 [id number] / / [id number] Description:All Medtronic co mponents are processed on requisition [id number]. Neuro Stimulator [employer] - COVIDIEN [id number] / [id number] / Description:need to check if whole body eligible and must have remote. ONLY 30 minutes of scanning 1.5T CLOSED only-merrill 07/09/19 Rodrick Knees Explanted Type Area Music Director Device Identifier Shelf Expiration Date Model / Serial / Lot Electrode Explanted:Qty: 1 on 09/15/2019 by Debora Najera MD at [facility] N/A: Spine Lumbar Insurance MEDICARE PART A AND B [facility] PRIME [employer]ERAPEUT[employer] Medicare Part D Advance Directives For more information, please contact: [phone] * Full Code (Latest Code Status on File) Date Activated Date Inactivated Comments 09/15/2019 11:41 AM 09/15/2019 5:01 PM * Full Code Date Activated Date Inactivated Comments 09/15/2019 7:30 AM 09/15/2019 11:41 AM Care Teams V Belt Skiver Relationship Specialty Start Date End Date Dereck Byrnes MD [address] [facility] [address] [place] [address] PCP - General Family Practice 09/01/19
--- OUTSIDE RECORDS SUMMARY | 2024-10-20 13:55 | XMS_ITS | Clinical Summary ---
Author Organization [facility] Address [address] [place] [address] Care Team Providers Care Mechanic Sound Technician Name Role Phone Dereck Byrnes MD Primary Care Provider [phone] Social History Tobacco Use Types Packs/Day Years Used Date Smoking Tobacco: Never Assessed Comments Unknown Sex and Gender Information Value Date Recorded Sex Assigned at Not on file Legal Sex Female 11:04 PM CO OP Gender Identity Not on file Sexual Orientation [...] this topic Medical Devices Implanted Type Area Anesthesiologist Physician Device Identifier Shelf Expiration Date Model / Serial / Lot Stimulator Lead-09/15/2019 Implanted:Qty: 1 on 09/15/2019 Lead Implant [employer] [id number] / [id number] / Stimulator Implant- 9 Implanted:Qty: 1 on 02/07/2019 Stimulator Implant [employer] [id number] / [id number] / Description:MR CONDITIONAL A T 1.5 T ONLY, NEED REMOTE TO TURN OFF STIMULATION, CHECK FOR FULL BODY ELIGIBILITY WITH REMOTE, NORMAL VISHAL, MAX TOTAL SCAN TIME OF 30 MINUTES IN A 90 MINUTE WINDOW Insurance MEDICARE [facility] Care Teams Mechanic Sound Technician Relationship Specialty Start Date End Date Dereck Byrnes MD [address] [place] [address] PCP - General FAMILY PRACTICE 04/07/24
== END 2024-10-20 10:50 | disposition home or self-care (01) ==
LOC: CHSLAB 10:52
PROVIDERS: PCP Family Medicine; Visit Provider Family Medicine
DX: I10 Essential (primary) hypertension (principal); E11.9 Type 2 diabetes mellitus without complications; G31.84 Mild cognitive impairment of uncertain or unknown etiology; E03.9 Hypothyroidism, unspecified; E53.8 Deficiency of other specified B group vitamins
CPT/HCPCS: 36415; 80053; 80061; 82607; 82746; 83036; 84443; 85025